=== PATIENT | male | born 1975 | race Caucasian/White ===

== ENCOUNTER 2023-12-10 09:59 | Emergency (ER) | payer OTHER, SELFPAY ==
[2023-12-10 10:19] VITALS: BP 127/81
[2023-12-10 10:36] VITALS: BMI 26.0
--- NOTE | 2023-12-10 11:38 | ED.GENMED ---
History of Present Illness
General
Chief Complaint: Musculo-Skeletal Complaint
Time Seen by Provider: 12/10/23 10:26
Travel History
Have you had any contact with someone who has COVID-19?: No
Do you have any symptoms of coronavirus? Fever > 100 degrees, chills, cough, shortness of breath, sore throat, loss of taste or smell, muscle aches, or headache?: No
History of Present Illness
History of Present Illness:
48-year-old male presents the emergency department for evaluation of left knee pain. He states he feels like it slips out of place whenever he is ambulating particular going up stairs. He also reports some degree of right knee pain and similar
symptoms. Denies any falls or trauma. Has not take any medications for pain
Past History
Past History
ED Past Medical History: Psychiatric
ED Past Surgical History: None
Social History
Tobacco: Smoker
Alcohol: None
Drug: None
Personal: Single
Living: with family
Employment: Other (Noncontributory)
Family History
Family History: Other (Noncontributory)
Review of Systems
Review of Systems
Allergies reviewed?: Yes
All Other Systems: ROS reviewed and negative except as documented in HPI and ROS
Phy Exam
Physical Exam
Physical Exam:
GEN: Well appearing, NAD, WDWN
HEENT: Oral mucosa moist, no scleral icterus
Cardiac: Regular rate
Lung: No respiratory distress, no tachypnea
MSK: No gross deformity or injuries. Normal range of motion bilateral knees. There is some valgus translocation of the patella when extending from a flexed position compatible with patellofemoral syndrome
Skin: Good color, no pallor or jaundice, no rashes
Neuro: AO x3, moves all extremities freely
Psych: Calm, cooperative
Course
Orders/Labs/Results
Orders:
Orders
12/10/23 10:30
CR Knee - Left 4 Or More View* Urgent
Comment:
Reason For Exam: pain
12/10/23 10:39
CR Knee- Right 4 Or More View* Urgent
Comment:
Reason For Exam: pain
Vital Signs
Initial and Last Documented VS:
Initial Vital Signs
Pulse Resp BP Pulse Ox
98 18 127/81 98
12/10/23 10:19 12/10/23 10:19 12/10/23 10:19 12/10/23 10:19
Last Documented Vital Signs
Pulse Resp BP Pulse Ox
98 18 127/81 98
12/10/23 10:19 12/10/23 10:19 12/10/23 10:19 12/10/23 10:19
MDM/Problems Addressed
MDM/Problems Addressed:
X-rays of bilateral knees are unremarkable. Likely patellofemoral pain syndrome clinically. Will recommend NSAIDs and outpatient physical therapy with orthopedic follow-up
*Critical Care Note
Total Time (30-74mins, 75-104mins- exclusive of procedures): Not Applicable
ED Attending Note
-
Portions of this chart may have been created with voice recognition software.� Occasional wrong word or��sound alike� substitutions may have occurred due to the inherent limitations of voice recognition software.
Discharge Plan
Departure
Patient Disposition: Home (Routine Discharge)
Date of Disposition: 12/10/23
Time of Disposition: 11:39
Patient with high blood pressure during this ER visit?: No
Discharge Problem:
Patellofemoral pain syndrome of left knee
Instructions: Patellofemoral Pain (DC)
Prescriptions:
New
meloxicam 15 mg tablet
15 mg PO DAILY Qty: 10 0RF
Referrals:
Carmelina Díaz, DO [Active] -
UNKNOWN - PT DOES,NOT KNOW [Family Provider] -
Interventions
Interventions:
*Risk Screen - Suicide Last Done: 12/10/23 10:21
*General Assessment Last Done: 12/10/23 10:21
*Neglect/Abuse Screening Last Done: 12/10/23 10:21
ED- Fall Risk Assessment Last Done: 12/10/23 10:35
*ED COVID-19 Vaccine History Last Done: 12/10/23 10:34
*Nursing Disposition Last Done: 12/10/23 12:51
ED-Musculoskeletal Assessment Last Done: 12/10/23 10:34
Discharge Date and Time
Discharge Date/Time: 12/10/23 11:55
--- NOTE | 2023-12-10 12:50 | EDRN ---
Discharge instructions given to patient by Montana Barahona PA-C.
== END 2023-12-10 11:55 | disposition home or self-care (01) ==
LOC: EMR 09:59
PROVIDERS: EMERGENCY PHYSICIAN Emergency Medicine
DX: M22.2X2 Patellofemoral disorders, left knee (principal); F17.200 Nicotine dependence, unspecified, uncomplicated
CPT/HCPCS: 99283; 73564